=== PATIENT | female | born 1970 | race Caucasian/White ===

== ENCOUNTER 2017-06-08 07:48 | Emergency (ER) | payer SELFPAY ==
[~2017-06-08] VITALS: Ht 172.7 cm; Wt 62.0 kg
[2017-06-08 08:35] LABS: HEMATOCRIT 39.9 % (36.0-46.0); MCH 32.6 PG (29.0-34.0); MCHC 34.8 G/DL (30.0-36.0); MCV 93.7 FL (83-99); MEAN PLAT.VOLUME 10.2 uM^3 (9.5-12.4); PLATELET COUNT 225 K/uL (156-360); RBC DIS.WIDTH-CV 12.2 % (11.8-14.6); RBC DIS.WIDTH-SD 42.4 % (39-53); RED BLOOD COUNT 4.26 M/uL (3.80-5.20); WHITE BLOOD COUNT 5.2 K/uL (4.1-10.2)
[2017-06-08 08:43] LABS: CHLORIDE 102 mEq/L (99-109); POTASSIUM 4.1 mEq/L (3.7-5.4); SODIUM 138 mEq/L (136-147)
[2017-06-08 08:45] LABS: GLUCOSE 90 mg/dL (70-99)
[2017-06-08 08:46] LABS: ANION GAP 15 MEQ/L (2-14)
[2017-06-08 08:48] LABS: ALKALINE PHOSPHATASE 75 IU/L (3-129)
[2017-06-08 08:50] LABS: UREA NITROGEN (BUN) 9 mg/dL (9-23)
[2017-06-08 08:52] LABS: GFR ESTIMATE (CALCULATED) > 59 mL/min/; LIPASE 12 U/L (1.0-51.0)
[2017-06-08 09:01] LABS: QUANTITATIVE HCG < 4.0 MIU/ML
[2017-06-08] MEDS ORDERED: BENTYL10 MG PO (09:48)
[2017-06-08] MEDS ORDERED: ZOFRAN ODT4 MG PO (09:48)
[2017-06-08 10:04] LABS: ADD MIUA? YES; BILIRUBIN NEGATIVE; BLOOD SMALL; COLOR YELLOW ((YELLOW)); GLUCOSE (STRIP) NEGATIVE; KETONES 5; LEUKOCYTES NEGATIVE; NITRITE NEGATIVE; PROTEIN (STRIP) 100; SPECIFIC GRAVITY 1.015 (1.000-1.030); UROBILINOGEN 0.2 MG/DL (0.2-1.0)
[2017-06-08 10:08] LABS: BACTERIA NONE SEEN /HPF; EPITHELIAL CELLS RARE /HPF; HYALINE CASTS 0-5 /LPF; MUCUS 4+ /LPF; RED BLOOD CELLS 0-5 /HPF (0-5); UNCLASSIFIED CASTS 0-5 /LPF; WHITE BLOOD CELLS 0-5 /HPF (0-5)
[2017-06-08 11:58] VITALS: BP 124/75
== END 2017-06-08 11:59 | disposition home or self-care (01) ==
LOC: EME 07:48
PROVIDERS: Nurse Practitioner Family
DX: E86.0 Dehydration (principal); B34.9 Viral infection, unspecified; R11.2 Nausea with vomiting, unspecified; R55 Syncope and collapse; F17.200 Nicotine dependence, unspecified, uncomplicated
CPT/HCPCS: 71020; 80053; 81003; 83690; 84702; 85027; 99281; 99283; J1885; J2405; J7030